=== PATIENT | female | born 1960 | race Caucasian/White ===

== ENCOUNTER 2023-09-28 11:32 | Emergency (ER) | payer BC, SELFPAY ==
[2023-09-28 11:36] VITALS: BP 133/96
[2023-09-28] MEDS: OMNIPAQUE 50 ML PO (13:26)
[2023-09-28 13:30] LABS: % Basophils 0.8 % (0-2); % Immature Granulocytes 0.9 % (0-0.5); % Lymphocytes 26.6 % (20.5-51.1); % Monocytes 9.7 % (1.7-9.3); Absolute Basophils 0.1 10^3/uL (0-0.2); Absolute Eosinophils 0.1 10^3/uL (0-0.7); Absolute Immature Granulocytes 0.1 10^3/uL (0-0.05); Absolute Lymphocytes 2.5 10^3/uL (1.2-3.4); Absolute Monocytes 0.9 10^3/uL (0.1-0.6); Absolute Neutrophils 5.7 10^3/uL (1.4-6.5); Hemoglobin 15.3 g/dL (12.0-16.0); Mean Corpuscular Volume 82.3 fL (81.0-99.0); Mean Platelet Volume 8.8 fL (7.4-10.4); Nucleated Red Blood Cells % 0 %; Platelet Count 258 10^3/uL (130-400); Red Blood Cell Count 5.47 10^6/uL (4.20-5.40); Red Cell Dist. Width 15.7 % (11.5-14.5); White Blood Cell Count 9.3 10^3/uL (4.8-10.8)
[2023-09-28] MEDS: ZOFRAN 4 MG IV (13:40)
[2023-09-28] MEDS: NSS 500 IV (13:40)
[2023-09-28] MEDS: TORADOL 15 MG IV (13:41)
[2023-09-28 14:08] LABS: ALT (SGPT) 16 U/L (0-35); AST (SGOT) 28 U/L (14-36); Albumin 4.2 g/dl (3.5-5.0); Alkaline Phosphatase 139 U/L (38-126); Blood Urea Nitrogen 11 mg/dl (7-17); Calcium 9.5 mg/dl (8.4-10.2); Carbon Dioxide 25 mmol/L (22-30); Chloride 106 mmol/L (98-107); Glucose 130 mg/dl (70-99); Lipase 46 U/L (23-300); Potassium 3.4 mmol/L (3.5-5.1); Sodium 138 mmol/L (135-145); Total Bilirubin 0.8 mg/dl (0.2-1.3); Total Protein 7.5 g/dl (6.3-8.2); eGFR > 60.00
[2023-09-28 14:26] VITALS: BP 143/89
[2023-09-28] MEDS: DILAUDID 0.5 MG IV ×2 (14:38→16:43)
--- NOTE | 2023-09-28 16:38 | ED.GENMED ---
History of Present Illness
General
Chief Complaint: Abdominal Pain
Source: patient
Exam Limitations: none
Time Seen by Provider: 09/28/23 12:28
Travel History
Have you had any contact with someone who has COVID-19?: No
Do you have any symptoms of coronavirus? Fever > 100 degrees, chills, cough, shortness of breath, sore throat, loss of taste or smell, muscle aches, or headache?: No
History of Present Illness
History of Present Illness:
62-year-old female started with abdominal pain yesterday. Progressive today. History of diverticulitis. Mostly lower quadrants. Moderate in nature
Past History
Past History
ED Past Medical History: HTN, Hypercholesterolemia, NIDDM and Psychiatric
ED Past Surgical History: Cholecystectomy and Gynecological
Review of Systems
Review of Systems
All Other Systems: Not applicable
Constitutional: Denies fever
Respiratory: Reports no symptoms
Cardiac: Reports no symptoms
Phy Exam
Physical Exam
Physical Exam:
GENERAL: Alert and oriented in no apparent distress
EYE: Orbits normal.
NECK: Supple
CARDIAC: Regular rate and rhythm without any obvious murmurs.
LUNGS: Clear breath sounds,normal
ABDOMEN: Soft, bowel sounds present. Nonlocalizing tenderness greater in the lower quadrants but mild epigastric tenderness
NEUROLOGICAL: Alert and oriented , grossly non-focal
SKIN: Warm and dry, no rash or lesion, no discoloration, skin intact.
MUSCULOSKELETAL: No edema,no deformity.Good color
PSYCH: Normal and appropriate interaction.
Course
Orders/Labs/Results
Orders:
Orders
09/28/23 12:35
CT Abd/pel W Iv And Oral Contr Urgent
Comment:
Reason For Exam: lower abd pain. hx of divert. rlq pain
IV Insert/Care/Rem.- Treatment PRN
Urinalysis Reflex To Culture Urgent
Date Specimen was Collected: 09/28/23
Time Specimen was Collected: 13:06
0.9% Sodium Chloride 500 ml [Nss] 500 ml IV BOLUS
Iohexol [Omnipaque] See Protocol PO NOW STA
09/28/23 13:15
Ketorolac [Toradol] 15 mg .ROUTE .STK-MED ONE
Ondansetron Injectable [Zofran] 4 mg .ROUTE .STK-MED ONE
09/28/23 13:20
Complete Blood Count/With Diff Urgent
09/28/23 13:37
Comprehensive Metabolic Panel Urgent
Lipase Urgent
09/28/23 13:40
Ondansetron Injectable [Zofran] 4 mg IV NOW STA
09/28/23 13:41
Ketorolac [Toradol] 15 mg IV NOW STA
09/28/23 14:32
HYDROmorphone [Dilaudid] 0.5 mg IV NOW STA
09/28/23 16:29
HYDROmorphone [Dilaudid] 0.5 mg IV NOW STA
09/28/23 16:38
Amoxicillin 875 mg/Clav 125 mg [Augmentin 875 mg/125 mg] 1 tablet PO NOW STA
Abnormal Lab Results
09/28/23 09/28/23
13:20 13:37
RBC 5.47 H 10^6/uL
(4.20-5.40)
RDW 15.7 H %
(11.5-14.5)
Abs Immat Gran (auto) 0.1 H 10^3/uL
(0-0.05)
Absolute Monos (auto) 0.9 H 10^3/uL
(0.1-0.6)
Immature Gran % 0.9 H %
(0-0.5)
Monocytes % 9.7 H %
(1.7-9.3)
Potassium 3.4 L mmol/L
(3.5-5.1)
Creatinine 0.5 L mg/dL
(0.6-1.0)
Glucose 130 H mg/dl
(70-99)
Alkaline Phosphatase 139 H U/L
(38-126)
09/28/23 13:20
09/28/23 13:37
Vital Signs
Initial and Last Documented VS:
Initial Vital Signs
Temp Pulse Resp BP Pulse Ox
97.8 F 114 22 133/96 97
09/28/23 11:36 09/28/23 11:36 09/28/23 11:36 09/28/23 11:36 09/28/23 11:36
Last Documented Vital Signs
Temp Pulse Resp BP Pulse Ox
97.8 F 96 18 143/89 98
09/28/23 11:36 09/28/23 14:41 09/28/23 14:41 09/28/23 14:26 09/28/23 14:41
MDM/Problems Addressed
Differential Diagnosis Includes:
Evaluation for diverticulitis or acute surgical abdomen. Clinically doubt. Workup in progress.
*Radiology
Radiology exam reviewed: radiology read reviewed (Thickening of sigmoid colon. Mass in the pancreatic head. Diverticulosis. No obvious diverticulitis)
*Pulse Oximetry
Patient hypoxic: no
*Critical Care Note
Total Time (30-74mins, 75-104mins- exclusive of procedures): Not Applicable
Update Note
Update Note:
Lengthy discussion with the patient concerning ongoing management of the CT findings. Patient was offered admission for pain management. No definitive explanation for her pain. Diverticulosis but no obvious diverticulitis. Patient wants to go
home. She asked for 1 more dose of pain medication. She is aware of mass in the pancreatic head and aware of the thickening sigmoid colon. Neither of these require hospitalization but can be managed as an outpatient. She was given a copy of the
CT report and will follow-up with her GI physician. She does not want to stay in the hospital at this time.
ED Attending Note
-
Portions of this chart may have been created with voice recognition software.� Occasional wrong word or��sound alike� substitutions may have occurred due to the inherent limitations of voice recognition software.
Discharge Plan
Departure
Patient Disposition: Home (Routine Discharge)
Date of Disposition: 09/28/23
Time of Disposition: 16:42
Patient with high blood pressure during this ER visit?: Yes
Discharge Problem:
Abdominal pain, Diverticulosis, Possible mild diverticulitis, Thickened sigmoid colon, Pancreatic head mass
Instructions: Diverticulosis (DC), Abdominal Pain
Prescriptions:
New
amoxicillin-pot clavulanate 875-125 mg tablet
1 tab PO BID Qty: 20 0RF
Referrals:
UNKNOWN - PT DOES,NOT KNOW [Family Provider] -
Activity Restrictions/Additional Instructions:
You have a copy of your CAT scan report
You need to follow-up closely with your GI physician for the thickened sigmoid colon and the possible mass in the head of the pancreas. These cannot be ignored and need outpatient testing
Return with increased pain fever vomiting or if your abdominal pain has not resolved in 2 to 3 days
Interventions
Interventions:
*Risk Screen - Suicide Last Done: 09/28/23 11:36
*General Assessment Last Done: 09/28/23 11:36
*Neglect/Abuse Screening Last Done: 09/28/23 11:36
ED- Fall Risk Assessment Last Done: 09/28/23 13:46
*ED COVID-19 Vaccine History Last Done: 09/28/23 13:46
ZG-Kydxhe-Viesfpcrro Assessment Last Done: 09/28/23 13:46
[2023-09-28] MEDS: AUGMENTIN 875 MG/125 MG 1 TABLET PO (16:43)
[2023-09-28 16:51] VITALS: BP 142/88
[2023-09-28 16:56] VITALS: BP 146/125
[2023-09-28 17:03] LABS: Urine Albumin Trace (Neg - Trace); Urine Bilirubin Negative (Negative); Urine Character Clear (Clear); Urine Color Yellow; Urine Glucose Negative (Negative); Urine Ketone 2+ (Negative); Urine Leukocyte 2+ (Negative); Urine Nitrite Positive (Negative); Urine Occult Blood Negative (Negative); Urine Urobilinogen Negative (Neg - 1+); Urine pH 6.5 (5.0-9.0)
[2023-09-28 17:12] LABS: Urine Red Blood Cell None Seen /HPF (0-2); Urine Squamous Cell >30 /LPF (Few)
[2023-09-28 17:13] LABS: Urine Bacteria Moderate (Negative); Urine White Cell 21-25 /HPF (0-5)
== END 2023-09-28 17:02 | disposition home or self-care (01) ==
LOC: EMR 11:32
PROVIDERS: EMERGENCY PHYSICIAN Emergency Medicine
DX: R10.9 Unspecified abdominal pain (principal); K57.90 Diverticulosis of intestine, part unspecified, without perforation or abscess without bleeding; K86.89 Other specified diseases of pancreas; E11.9 Type 2 diabetes mellitus without complications; E78.00 Pure hypercholesterolemia, unspecified; I10 Essential (primary) hypertension; Z90.49 Acquired absence of other specified parts of digestive tract
CPT/HCPCS: 99284; 96374; 96375; 96376; 96361; 74177; 80053; 81003; 81015; 83690; 85025; 87086; 87088; 87186; Q9967